=== PATIENT | male | born 1955 | race Caucasian/White ===

== ENCOUNTER 2023-04-19 18:37 | Emergency (ER) | payer SELFPAY ==
[2023-04-19 18:39] VITALS: BP 160/104
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
[2023-04-19 19:55] VITALS: BP 138/90
== END 2023-04-19 20:42 | disposition home or self-care (01) ==
LOC: EMR 18:37
PROVIDERS: EMERGENCY PHYSICIAN Emergency Medicine; FAMILY PHYSICIAN Family Medicine
DX: R07.89 Other chest pain (principal); V49.40XA Driver injured in collision with unspecified motor vehicles in traffic accident, initial encounter; I10 Essential (primary) hypertension
CPT/HCPCS: 99284; 71046; 93005